=== PATIENT | female | born 1980 | race Caucasian/White ===

== ENCOUNTER 2020-11-27 00:27 | Outpatient (CLI) | payer BC, SELFPAY ==
[2020-11-27 18:27] LABS: SARS-CoV-2 RNA PCR Negative
== END 2020-11-27 00:28 | disposition home or self-care (01) ==
LOC: ANHCOVIDDT 00:27
PROVIDERS: Visit Provider Internal Medicine Critical Care Medicine
DX: Z01.812 Encounter for preprocedural laboratory examination (principal); Z20.822 Contact with and (suspected) exposure to COVID-19
CPT/HCPCS: C9803; U0003; U0005

== ENCOUNTER 2020-11-29 08:50 | Outpatient (CLI) | payer BC, SELFPAY ==
--- NOTE | 2020-12-25 09:06 | WPDSLEEPSTUD ---
Sleep Study Date of Study: 11/29/20 Ordering Provider: Gina Delong MD Interpreting Physician: Gina Delong MD Sleep Study Type: Polysomnogram Height: 1.78 m Weight: 76.657 kg Body Mass Index: 24.2 Neck Circumference: 35.56 cm [place]: 3 Reason for Sleep Study sleep paralysis Sleep History Luiza Patel is a 40-year-old female who states that she has had problems with apneic episodes and sleep paralysis since childhood. She has never sought help for this. She feels desperate to improve her quality of sleep. She has longstanding complaints of daytime fatigue, multiple night awakenings, witnessed apneic events, and non restorative sleep. She snores frequently, and occasionally it is loud enough that others complain about it. She describes herself as a mouth breather with nasal allergies. She rarely awakens at night with heartburn, belching or coughing. She frequently awakens from sleep feeling short of breath. She occasionally has trouble sleep with a cold. She frequently wakes up gasping for breath at night. She frequently has breathing problems at night observed by others. She frequently sweats excessively at night. She frequently notices her heart pounding or beating irregularly at night. She occasionally falls asleep during the day, never involuntarily and never while driving. She really has loss of muscle tone was strong emotion. She frequently has daytime difficulties due to excessive sleepiness. She occasionally feels paralyzed on waking or falling asleep. She occasionally has vivid dreamlike scenes upon awakening or falling asleep. She does not feel afraid to go to sleep. She occasionally has nightmares. She frequently remembers her dreams. She frequently has racing thoughts. She frequently feels sad, depressed, and anxious. She frequently has muscular tension. She occasionally notices parts of her body jerking. She does not kick during the night. She occasionally has crawling and aching feelings in her legs. She does not have any kind of leg pain at night. She does not have morning jaw pain. She does not grind her teeth during sleep. She frequently is bothered by pain during the day. She rarely is awakened by pain at night. She occasionally wakes up feeling stiff in the morning with sore achy muscles and pain in the neck and spine. She has memory problems, insomnia, concentration difficulties, nightmares, headaches and feels unable to relax. She eugenia Brooks has heartburn at night. She rarely has morning headaches; she never awakens feeling refreshed. During the night when she wakes, she feels paralyzed, feels like she cannot breathe easily and tries to scream but she can't. She avoids daytime naps because of these events. She's had difficulty sleeping since childhood when her father committed suicide. She only drinks one cup of coffee per day and no soda. She drinks alcohol only socially. Other medical history includes allergic rhinitis and eustachian tube dysfunction. Her normal bedtime is around midnight, taking an hour on average to fall asleep. She wakes up multiple times. Sometimes she is awake for minutes, other times it may be hours. She wakes in the morning between 8 and 10:00 a.m.. She does not take naps. A short nap is not refreshing. She is usually drowsy in the morning for 1 hour or longer. [facility] Past Medical History Medical History (Updated 12/25/20 @ 09:21 by Gina Delong MD) Sleep paralysis, recurrent isolated Surgical History Surgical History (Updated 12/25/20 @ 09:39 by Gina Delong MD) History of endometrial ablation Social History Social History Smoking status: Never smoker Second hand tobacco smoke exposure: No Alcohol intake: current Drinks per week: 5 Substance use: never Medications Home Medications Medication Instructions Recorded Confirmed Type fluticasone propionate [Flonase 1 s
--- NOTE | 2020-12-25 09:44 | WPDSLEEPSTUD ---
Sleep Study Date of Study: 11/30/20 Ordering Provider: Gina Delong MD Interpreting Physician: Gina Delong MD Sleep Study Type: Multiple Sleep Latency Test Height: 1.78 m Weight: 76.657 kg Body Mass Index: 24.2 Neck Circumference: 35.56 cm [place]: 3 Reason for Sleep Study Evaluation of sleep paralysis and daytime fatigue Sleep History See sleep history on report from basic sleep study Nov 29. [facility] Past Medical History Medical History (Updated 12/25/20 @ 09:21 by Gina Delong MD) Sleep paralysis, recurrent isolated Surgical History Surgical History (Updated 12/25/20 @ 09:39 by Gina Delong MD) History of endometrial ablation Social History Social History Smoking status: Never smoker Second hand tobacco smoke exposure: No Alcohol intake: current Drinks per week: 5 Substance use: never Medications Home Medications Medication Instructions Recorded Confirmed Type fluticasone propionate [Flonase 1 spray INTRANASAL DAILY 11/02/19 09/27/20 History Allergy Relief] fluticasone propionate 50 1 spray INTRANASAL DAILY 09/27/20 09/27/20 History mcg/actuation nasal spray,suspension multivitamin 1 cap PO DAILY 09/27/20 09/27/20 History cetirizine 10 mg tablet 10 mg PO DAILY PRN 12/20/20 History Sleep Procedure The recording montage for the MSLT includes central EEG (C3-A2, C4-A1) and occipital (O1-A2, O2-A1) derivations, left and right eye electrooculograms (EOGs), mental/submental electromyogram (EMG), and electrocardiogram (EKG). Nap 1 commenced at 7:11 a.m. Sleep onset: none; no REM Nap 1 was terminated at 7:31 a.m. The patient said that sleep did not occur, Nap 2 commenced at 9:17 a.m.. Sleep onset: none; no REM Nap 2 was terminated at 9:37 a.m. The patient said that sleep did not occur. Nap 3 commenced at 11:17 a.m. Sleep onset: 4:12; no REM Nap 3 was terminated at 11:37 a.m. The patient said that sleep did not occur. Nap 4 commenced at 1:17 p.m. Sleep onset: 5:44; no REM Nap 4 was terminated at 1:38 p.m. The patient said that she was not sure if she slept; felt her chest tighten, was almost going to dream. Nap 5 commenced at 3:18 p.m. Sleep onset: 15:03; brief REM Nap 5 was terminated at 3:48 p.m. The patient said that she was not sure if she slept, and was not sure if she had a dream. The mean sleep latency is 13 minutes, normal. The patient slept on 3 of 5 naps. The patient was not sure but thought she might have been asleep on 2 naps, and thought she may have had REM on the last nap, which was accurate. Sleep Architecture NA Respiratory Analysis NA Arousals NA Periodic Limb Movements NA Oximetry Data NA Snoring Profile NA Cardiac Profile Normal sinus rhythm EEG Profile There is no seizure activity. Assessment and Plan Assessment and Plan (1) Sleep paralysis, recurrent isolated: Code(s): G47.53 - Recurrent isolated sleep paralysis Status: Acute Assessment and Plan: She has sleep paralysis without narcolepsy. Treatment with fluoxetine may be helpful. She is encouraged not avoid sleep deprivation, try to reduce stress especially around bedtime, and to keep a stable sleep schedule. Sleep paralysis occurs when muscles cannot move while the patient is awake. Muscles are paralyzed normally during REM sleep, however can occur in wakefulness around the time of sleep onset or when waking up from sleep. This causes brief inability to move. Recurrent sleep paralysis is often associated with narcolepsy. It can also occur in normal people with sleep deprivation and with increased periods of stress. If there is an anxiety disorder present, treatment for anxiety may be helpful. REM suppressing drugs including tricyclic agents, clonidine, or clonazepam can be helpful.
[2020-12-25 10:40] VITALS: BMI 24.2
[2020-12-25 11:20] VITALS: BMI 24.2
== END 2020-11-29 08:51 | disposition home or self-care (01) ==
LOC: ANHCSM 08:51
PROVIDERS: Visit Provider Internal Medicine Critical Care Medicine
DX: G47.53 Recurrent isolated sleep paralysis (principal); R06.83 Snoring
CPT/HCPCS: 95805; 95810

== ENCOUNTER 2022-01-09 10:19 | Outpatient (CLI) | payer OTHER, SELFPAY ==
--- NOTE | ~2022-01-09 | CT_ITS ---
EXAMINATION: CT sinus wo con DATE: 01/09/2022 10:42 INDICATION: Sinus pressure TECHNIQUE: Computed tomography (CT) of the paranasal sinuses was performed without intravenous contra st. The dose-length product (DLP) was 311.14 mGy-cm. Iterative reconstruction was used. COMPARISON: None FINDINGS: There is normal development and pneumatization of the paranasal sinuses. There is a 2 mm po lyp versus mucous retention cyst in the right maxillary sinus. The frontal, sphenoid, ethmoid, and le ft maxillary sinuses are clear. The bilateral ostiomeatal complexes are patent. Visualized soft tissu es are unremarkable. There are 4 mm of rightward deviation of the nasal septum. IMPRESSION: 1. Minimal right maxillary sinus disease. Reviewed, dictated and finalized at location B. ER BASED INTERVENTION COORDINATOR
== END 2022-01-09 10:20 | disposition home or self-care (01) ==
LOC: ANHIMG 10:26
PROVIDERS: Visit Provider Otolaryngology
DX: R51.9 Headache, unspecified (principal); H92.09 Otalgia, unspecified ear; J34.3 Hypertrophy of nasal turbinates; J34.89 Other specified disorders of nose and nasal sinuses; J32.0 Chronic maxillary sinusitis
CPT/HCPCS: 70486

== ENCOUNTER 2022-06-25 09:28 | Outpatient (CLI) | payer OTHER, SELFPAY ==
[2022-06-25 09:44] LABS: Basophils Percent Auto 0.4 % (0.2-1.2); Eosinophils Absolute Auto 0.2 K/mm3 (0-0.3); Eosinophils Percent Auto 2.1 % (0-4.4); Hematocrit 42.4 % (37.0-47.0); Hemoglobin 13.9 g/dL (12.0-15.0); Immature Granulocyte Absolute 0.04 K/mm3 (0.00-0.031); Immature Granulocyte Percent A 0.6 % (0-0.5); Lymphocytes Absolute Auto 1.67 K/mm3 (0.9-3.2); Lymphocytes Percent Auto 23.5 % (18.3-44.2); Mean Corpuscular HGB Conc 32.8 g/dl (32-36); Mean Corpuscular Hemoglobin 31.7 pg (26-34); Mean Corpuscular Volume 96.6 fl (80-100); Mean Platelet Volume 9.8 fl (7.4-10.4); Monocytes Absolute Auto 0.5 K/mm3 (0.1-0.6); Monocytes Percent Auto 6.9 % (2.6-8.5); Neutrophils Absolute Auto 4.7 K/mm3 (1.3-6.7); Neutrophils Percent Auto 66.5 % (45.5-73.1); Platelet Count Result 278 k/mm3 (150-375); Red Blood Count 4.39 M/mm3 (4.2-5.4); Red Cell Distribution Width 13.3 % (11.5-14.5); White Blood Count 7.1 K/mm3 (4.5-10.0)
[2022-06-25 10:05] LABS: Alanine Aminotransferase 20 U/L (6-35); Albumin Level 4.6 g/dL (3.5-5.1); Alkaline Phosphatase 63 U/L (38-126); Anion Gap 9 mmol/L (8-16); Aspartate Amino Transferase 25 U/L (14-36); Bilirubin,Total 0.5 mg/dL (0.2-1.3); Blood Urea Nitrogen 11 mg/dL (7-17); Calcium 8.7 mg/dL (8.4-10.2); Carbon Dioxide 24 mmol/L (22-30); Chloride 106 mmol/L (98-107); Cholesterol 246 mg/dL (0-200); Estimated Glomerular Filt Rate > 60; Glucose 99 mg/dL (65-110); HDL Direct 60 mg/dL; Potassium 4.2 mmol/L (3.4-5.0); Sodium 139 mmol/L (137-145); Triglycerides 191 mg/dL (<150)
[2022-06-25 10:14] LABS: Free T4 Free Thyroxine 0.78 ng/mL (0.78-2.19); Vitamin D 25 Hydroxy 41.9 ng/mL
[2022-06-25 10:16] LABS: LDL Cholesterol Direct 148 mg/dL
[2022-06-25 10:35] LABS: Hemoglobin A1C 4.7 % (<5.7)
== END 2022-06-25 09:29 | disposition home or self-care (01) ==
LOC: ANHLAB 09:29
PROVIDERS: PCP Family Medicine; Visit Provider Family Medicine
DX: R73.9 Hyperglycemia, unspecified (principal); E55.9 Vitamin D deficiency, unspecified; Z13.220 Encounter for screening for lipoid disorders; R53.83 Other fatigue
CPT/HCPCS: 36415; 80053; 80061; 82306; 83036; 84439; 84443; 85025

== ENCOUNTER 2022-11-03 16:14 | Emergency (ER) | payer OTHER, SELFPAY ==
--- NOTE | ~2022-11-03 | XR_ITS ---
EXAMINATION: XR chest 2V Exam Date/Time: 11/03/2022 16:45 BRASS FINISHER HISTORY: left side cp X4 days, describes as stabbing Comparison: None available. RESULT: Lines, tubes, and devices: None. Lungs and pleura: Clear. Cardiomediastinal silhouette: Normal. Other: No acute osseous or upper abdominal finding. IMPRESSION: No acute cardiopulmonary process. Reviewed, dictated and finalized at location K. S FINISHER
--- NOTE | 2022-11-03 16:16 | ECG_ITS ---
Measurements Intervals [place] Rate: 83 P: 42 [place]: 120 QRS: 13 QRSD: 86 T: 10 QT: 334 QTc: 394 Interpretive Statements SINUS RHYTHM RSR' IN V1 OR V2, PROBABLY NORMAL VARIANT NONSPECIFIC T-WAVE ABNORMALITY- ANT/INF LEADS BORDERLINE ECG NO PREVIOUS ECG AVAILABLE FOR COMPARISON Electronically Signed On 11-03-2022 19:36:06 MAINTENANCE EQUIPMENT OPERATOR by Marcin Loja D.O.
[2022-11-03 16:30] VITALS: BP 118/84; PULSE 83; RESP 18; TEMP 37; O2SAT 98
[2022-11-03 16:50] LABS: Basophils Percent Auto 0.4 % (0.2-1.2); Eosinophils Absolute Auto 0.1 K/mm3 (0-0.3); Eosinophils Percent Auto 1.7 % (0-4.4); Hematocrit 43.2 % (37.0-47.0); Hemoglobin 14.4 g/dL (12.0-15.0); Immature Granulocyte Absolute 0.03 K/mm3 (0.00-0.031); Immature Granulocyte Percent A 0.4 % (0-0.5); Lymphocytes Absolute Auto 1.62 K/mm3 (0.9-3.2); Lymphocytes Percent Auto 20.7 % (18.3-44.2); Mean Corpuscular HGB Conc 33.3 g/dl (32-36); Mean Corpuscular Hemoglobin 31.8 pg (26-34); Mean Corpuscular Volume 95.4 fl (80-100); Mean Platelet Volume 9.7 fl (7.4-10.4); Monocytes Absolute Auto 0.5 K/mm3 (0.1-0.6); Monocytes Percent Auto 6.4 % (2.6-8.5); Neutrophils Absolute Auto 5.5 K/mm3 (1.3-6.7); Neutrophils Percent Auto 70.4 % (45.5-73.1); Platelet Count Result 290 k/mm3 (150-375); Red Blood Count 4.53 M/mm3 (4.2-5.4); Red Cell Distribution Width 12.4 % (11.5-14.5); White Blood Count 7.8 K/mm3 (4.5-10.0)
[2022-11-03 17:03] LABS: Prothrombin Time 13.1 Seconds (11.1-14.7)
[2022-11-03 17:04] LABS: Partial Thromboplastin Time 24.9 SECONDS (22.3-36.8)
[2022-11-03 17:05] LABS: Alanine Aminotransferase 27 U/L (6-35); Albumin Level 4.4 g/dL (3.5-5.1); Alkaline Phosphatase 64 U/L (38-126); Anion Gap 1 mmol/L (8-16); Aspartate Amino Transferase 23 U/L (14-36); Bilirubin,Total 0.6 mg/dL (0.2-1.3); Blood Urea Nitrogen 13 mg/dL (7-17); Calcium 8.6 mg/dL (8.4-10.2); Carbon Dioxide 24 mmol/L (22-30); Chloride 108 mmol/L (98-107); Estimated CRCL calculation 99 ml/min; Estimated Glomerular Filt Rate > 60; Glucose 88 mg/dL (65-110); Lipase 62 U/L (23-300); Potassium 3.9 mmol/L (3.4-5.0); Sodium 133 mmol/L (137-145)
--- NOTE | 2022-11-03 17:15 | ED.CHESTPAIN ---
HPI - Chest Pain General Chief Complaint: Chest Pain Stated Complaint: chest pain, x 4 days Time Seen by Provider: 11/03/22 17:14 Source: patient Mode of arrival: ambulatory Limitations: no limitations History of Present Illness HPI narrative: Patient is a 41-year-old female who presents the ED with report of left-sided chest pain. Patient reports having intermittent pain in her midsternal chest over the last 1 week. She states the pain was described as squeezing and intermittently sharp. She also reports having a mild pain from her left upper back, radiating around her left flank region to her left breast over the last 4 days. Last night she noticed a rash to her left upper back. She is concerned she may have shingles. She had chickenpox as a child. Patient denies any trouble breathing, nausea, sweating, recent cough or cold symptoms, fevers, pain or swelling in legs, history of DM, hypertension, hyperlipidemia, smoking, DVT/PE. Denies family history of heart disease. Related Data Home Medications Medication Instructions Recorded Confirmed norethindrone acetate 1.5 1 tablet PO DAILY 11/06/21 09/04/22 mg-ethinyl estradiol 30 mcg tablet (Junel) fluticasone propionate 50 2 spray intranasal DAILY 02/06/22 09/04/22 mcg/actuation nasal spray,suspension loratadine 10 mg tablet 10 mg PO DAILY 02/06/22 09/04/22 lysine 1,000 mg tablet 1,000 mg PO DAILY 02/06/22 09/04/22 Allergies Allergy/AdvReac Type Severity Reaction Status Date / Time Sulfa (Sulfonamide Allergy Severe VOMITING, Verified 11/03/22 17:14 Antibiotics) HIVES coconut Allergy Mild THROAT Verified 11/03/22 17:14 BURNING Sulfonamides Allergy Intermediate hives, Uncoded 11/03/22 17:14 VOMITING Review of Systems Review of Systems: CONSTITUTIONAL: Denies fever, chills, or sweats. ENT: Denies rhinorrhea, congestion, sore throat. CARDIOVASCULAR: Reports midsternal CP. Denies palpitations or edema. RESPIRATORY: Denies cough or dyspnea. GASTROINTESTINAL: Denies abdominal pain, nausea, vomiting. SKIN: Reports rash to her left upper back. MUSCULOSKELETAL: Reports pain L upper back/flank to L breast. All systems reviewed & are unremarkable except as noted in HPI and below PMFSH Past Medical History Medical History Allergies Anxiety Arthritis Sleep paralysis, recurrent isolated Surgical History Surgical History History of endometrial ablation Family History Family History Father Depression Anxiety Mother Anxiety Depression Hypertension Alcoholism Osteoporosis Sibling Alcoholism Grandparent Hypertension Depression Anxiety Heart problem Cerebrovascular accident Social History Social History Smoking status: Never smoker Second hand tobacco smoke exposure: No Alcohol intake: current Drinks per week: 5 Substance use: never Exam Narrative: GENERAL: Well appearing, well-nourished, non-toxic, in no acute distress. HEAD: Normocephalic, atraumatic. NECK: Supple. No adenopathy, no masses. RESPIRATORY: Airway patent, respirations nonlabored. Clear to auscultation bilaterally, no rales, rhonchi, wheezing. CARDIOVASCULAR: Regular rate and rhythm without murmurs, rubs, or gallops. Radial pulses 2+ and equal bilaterally. ABDOMINAL: Soft, nontender, nondistended, no hepatosplenomegaly. Normoactive BS. MUSCULOSKELETAL: Moves all extremities. Strength/ROM intact without gross deformities. No edema. No calf tenderness. SKIN: Warm, dry, normal color. Clustered area of vesicular rash with erythematous base to left upper back. Scattered vesicles wrapping around left rib cage and extending to left lateral breast, following dermatomal pattern. NEURO: A&O X3. Speech clear. Cranial nerves II-
[2022-11-03 17:16] LABS: Troponin I < 0.012 ng/mL (0.000-0.034)
[2022-11-03 17:17] VITALS: PULSE 75
[2022-11-03 17:19] VITALS: BP 126/103; PULSE 78; RESP 15; O2SAT 100
[2022-11-03] MEDS: valACYclovir HCL 500 MG TABLET 1000 MG PO (18:03)
[2022-11-03 18:04] VITALS: BP 114/64; PULSE 82; RESP 15; O2SAT 100
== END 2022-11-03 18:28 | disposition home or self-care (01) ==
LOC: ANHED 18:00
PROVIDERS: Emergency Medicine; Emergency Provider Physician Assistant; PCP Family Medicine
DX: B02.9 Zoster without complications (principal); R07.89 Other chest pain; M19.90 Unspecified osteoarthritis, unspecified site; G47.53 Recurrent isolated sleep paralysis; R94.31 Abnormal electrocardiogram [ECG] [EKG]
CPT/HCPCS: 36415; 71046; 80053; 83690; 84484; 85025; 85610; 85730; 93005; 99284; A9270